=== PATIENT | female | born 1970 | race African-American/Black ===

== ENCOUNTER 2017-04-13 19:34 | Emergency (ER) | payer MEDICAID, OTHER ==
[~2017-04-13] VITALS: Ht 157.5 cm; Wt 77.0 kg
[2017-04-13] MEDS ORDERED: KETOROLAC 60MG/2ML VIAL IM ONE (23:15)
[2017-04-14 01:26] VITALS: BP 131/83
== END 2017-04-14 01:31 | disposition home or self-care (01) ==
LOC: ER 21:02
DX: M25.512 Pain in left shoulder (principal); M79.1 Myalgia; I10 Essential (primary) hypertension; F17.200 Nicotine dependence, unspecified, uncomplicated; V89.2XXA Person injured in unspecified motor-vehicle accident, traffic, initial encounter; Y93.89 Activity, other specified; Y99.8 Other external cause status; Y92.410 Unspecified street and highway as the place of occurrence of the external cause; Z98.890 Other specified postprocedural states
CPT/HCPCS: 73030; 81025; 96372; 99284; J1885

== ENCOUNTER 2017-08-29 05:11 | Inpatient (IN) | payer MEDICAID ==
[~2017-08-29] VITALS: Ht 167.6 cm; Wt 86.2 kg
[2017-08-29] VITALS (40 sets, daily range): BP systolic 116–145; BP diastolic 51–89
[2017-08-29 06:18] LABS: CLARITY URINE CLEAR (CLEAR); COLOR URINE YELLOW (YELLOW); KETONES URINE NEGATIVE (NEGATIVE); LEUKOCYTE ESTERASE URINE NEGATIVE (NEGATIVE); NITRITE URINE NEGATIVE (NEGATIVE); OCCULT BLOOD URINE 1+ (NEGATIVE); PROTEIN URINE NEGATIVE (NEGATIVE); SPECIFIC GRAVITY URINE 1.025 (1.005-1.030); UROBILINOGEN URINE 0.2 E.U./dL (0.2-1.0)
[2017-08-29 06:19] LABS: PARTIAL THROMBOPLASTIN TIME 25.4 sec (23.4-31.0); PROTHROMBIN TIME 10.7 sec (9.4-11.6)
[2017-08-29 06:21] LABS: UCG SCREEN NEGATIVE
[2017-08-29] MEDS ORDERED: LACTATED RINGERS 1,000 ML IV SCH (06:45)
[2017-08-29] MEDS ORDERED: ASPI-1159 PO (07:12)
[2017-08-29] MEDS ORDERED: HYDR25TA PO (07:12)
[2017-08-29] MEDS ORDERED: LISI10TA5 PO (08:32)
[2017-08-29] MEDS ORDERED: FEXO-61 PO (08:32)
[2017-08-29] MEDS ORDERED: ATOR20TA65 PO (08:32)
[2017-08-29] MEDS ORDERED: HYDR-4001 PO (08:32)
[2017-08-29] MEDS ORDERED: FENTANYL CITRATE/PF 50MCG/ML 5ML VIAL ONE (10:30)
[2017-08-29] MEDS ORDERED: ONDANSETRON HCL 4MG/2ML VIAL IV PRN ×2 (10:30→11:00)
[2017-08-29] MEDS ORDERED: MORPHINE SULFATE 4 MG/ML CPJ (NOT FOR IM USE) IV PRN (10:30)
[2017-08-29] MEDS ORDERED: IPRATROPIUM/ALBUTEROL 0.5-3(2.5)MG/3ML NEB INH PRN (10:30)
[2017-08-29] MEDS ORDERED: MIDAZOLAM HCL 2 MG/2 ML VIAL ONE (10:30)
[2017-08-29] MEDS ORDERED: DIPHENHYDRAMINE 50MG/ML VIAL IV PRN (10:30)
[2017-08-29] MEDS ORDERED: PROPOFOL 200MG/20ML VIAL IV ONE (10:30)
[2017-08-29] MEDS ORDERED: GELATIN SPONGE,ABSORBABLE SZ 100 ONE (10:39)
[2017-08-29] MEDS ORDERED: BACITRACIN 50,000 UNITS/VIAL ONE (10:40)
[2017-08-29] MEDS ORDERED: THROMBIN (BOVINE) 5000 UNITS/VIAL TOP ONE (10:40)
[2017-08-29] MEDS ORDERED: NORMAL SALINE 0.9% 10 ML SYR ONE (10:40)
[2017-08-29] MEDS ORDERED: LIDOCAINE HCL/PF 1% 10 MG/ML 5ML VIAL ONE (10:43)
[2017-08-29] MEDS ORDERED: ROCURONIUM BROMIDE 10MG/ML VIAL 5ML IV ONE (10:44)
[2017-08-29] MEDS ORDERED: SUCCINYLCHOLINE CHLORIDE 200MG/10ML VIAL IV ONE (10:45)
[2017-08-29] MEDS ORDERED: FENTANYL CITRATE/PF 50MCG/ML 2ML VIAL ONE (10:56)
[2017-08-29] MEDS ORDERED: LABETALOL 5MG/ML SYR 20 MG/4 ML SYRINGE IV PRN (11:00)
[2017-08-29] MEDS ORDERED: MEPERIDINE HCL/PF 25MG/ML CPJ IV PRN (11:00)
[2017-08-29] MEDS ORDERED: NEOSTIGMINE METHYLSULFATE 1MG/ML 10 ML VIAL ONE (11:57)
[2017-08-29] MEDS ORDERED: GLYCOPYRROLATE 0.2 MG/ML 2ML VIAL ONE ×2 (11:57→12:01)
[2017-08-29] MEDS ORDERED: NALOXONE HCL 0.4 MG/ML 1ML VIAL ONE (12:10)
[2017-08-29] MEDS: HYDROMORPHONE HCL/PF 2MG/ML CPJ IV PRN ×2 (12:20→13:34)
[2017-08-29] MEDS ORDERED: DIPHENHYDRAMINE INJ IV PRN (12:45)
[2017-08-29] MEDS ORDERED: HYDROMORPHONE PCA 10MG/50ML IV PRN (12:45)
[2017-08-29] MEDS ORDERED: ONDANSETRON INJ IV PRN (12:45)
[2017-08-29] MEDS ORDERED: NALOXONE INJ IV PRN (12:45)
[2017-08-29] MEDS ORDERED: CEFAZOLIN SODIUM 1000MG/VIAL IV SCH (14:00)
[2017-08-29] MEDS ORDERED: NICARDIPINE 100 MG in SODIUM CHLORIDE 0.9% 60 ML IV PRN (14:23)
[2017-08-29] MEDS: DEXT 5%/LACTATED RINGERS 1,000 ML IV SCH ×2 (15:02→21:33)
[2017-08-29] MEDS: CEFAZOLIN 1000MG PREMIX 50 ML IV SCH (17:45)
[2017-08-29] MEDS: DEXAMETHASONE 4MG/ML 1ML VIAL IV SCH (17:45)
[2017-08-29] MEDS ORDERED: PNEUMOCOCCAL 23-VAL P-SAC VAC 0.5 ML IM ONE (20:00)
[2017-08-30] VITALS (34 sets, daily range): BP systolic 123–178; BP diastolic 50–108
[2017-08-30] MEDS: DEXAMETHASONE 4MG/ML 1ML VIAL IV SCH ×4 (00:55→17:55)
[2017-08-30] MEDS: CEFAZOLIN 1000MG PREMIX 50 ML IV SCH ×3 (01:00→17:55)
[2017-08-30] MEDS: DEXT 5%/LACTATED RINGERS 1,000 ML IV SCH (05:27)
[2017-08-30 05:43] LABS: HEMATOCRIT. 37.1 % (36.0-48.0); HEMOGLOBIN. 12.6 g/dL (12.0-16.0); MEAN CORPUSCULAR HEMOGLOBIN 29.7 pg (28.0-32.0); MEAN CORPUSCULAR VOLUME 87.4 fL (81.0-99.0); MEAN PLATELET VOLUME 7.2 fl (7.4-10.4); PLATELET 257 x1000/uL (130-400); RED BLOOD CELL COUNT 4.25 mill/uL (4.2-5.4); RED CELL DISTRIBUTION WIDTH 13.4 % (11.6-14.6)
[2017-08-30 05:58] LABS: CHLORIDE 107 mEq/L (98-107)
[2017-08-30] MEDS: ATORVASTATIN CALCIUM 20MG TABLET PO SCH (08:53)
[2017-08-30] MEDS: LISINOPRIL 10MG TABLET PO SCH (08:53)
[2017-08-30] MEDS: HYDROCHLOROTHIAZIDE 25MG TABLET PO SCH (08:54)
[2017-08-30] MEDS: HYDROCODONE/APAP 7.5/325MG 1 TAB TABLET PO PRN (17:55)
[2017-08-30 18:48] LABS: PLATELET ESTIMATE NORMAL
[2017-08-31] VITALS: BP 112/64
[2017-08-31] MEDS: HYDROCODONE/APAP 7.5/325MG 1 TAB TABLET PO PRN ×3 (02:42→21:04)
[2017-08-31] MEDS: CEFAZOLIN 1000MG PREMIX 50 ML IV SCH ×2 (02:42→09:58)
[2017-08-31 04:00] VITALS: BP 126/69
[2017-08-31 08:00] VITALS: BP 143/79
[2017-08-31] MEDS: LISINOPRIL 10MG TABLET PO SCH (09:58)
[2017-08-31] MEDS: ATORVASTATIN CALCIUM 20MG TABLET PO SCH (09:58)
[2017-08-31] MEDS: HYDROCHLOROTHIAZIDE 25MG TABLET PO SCH (09:58)
[2017-08-31 11:32] VITALS: BP 140/70
[2017-08-31 15:30] VITALS: BP 144/78
[2017-08-31 20:00] VITALS: BP 125/50
[2017-09-01] VITALS: BP 111/61
[2017-09-01] MEDS: HYDROCODONE/APAP 7.5/325MG 1 TAB TABLET PO PRN ×3 (03:35→21:51)
[2017-09-01 04:00] VITALS: BP 105/77
[2017-09-01 08:00] VITALS: BP 124/72
[2017-09-01] MEDS: HYDROCHLOROTHIAZIDE 25MG TABLET PO SCH (08:32)
[2017-09-01] MEDS: LISINOPRIL 10MG TABLET PO SCH (08:32)
[2017-09-01] MEDS: ATORVASTATIN CALCIUM 20MG TABLET PO SCH (08:32)
[2017-09-01 11:34] VITALS: BP 103/62
[2017-09-01 16:00] VITALS: BP 130/76
[2017-09-01] MEDS ORDERED: TEMAZEPAM 15MG CAPSULE PO PRN (19:00)
[2017-09-01 20:00] VITALS: BP 116/66
[2017-09-02] VITALS: BP 110/56
[2017-09-02 04:00] VITALS: BP 133/61
[2017-09-02 08:00] VITALS: BP 132/78
[2017-09-02] MEDS: LISINOPRIL 10MG TABLET PO SCH (08:38)
[2017-09-02] MEDS: HYDROCHLOROTHIAZIDE 25MG TABLET PO SCH (08:38)
[2017-09-02] MEDS: ATORVASTATIN CALCIUM 20MG TABLET PO SCH (08:38)
[2017-09-02] MEDS: HYDROCODONE/APAP 7.5/325MG 1 TAB TABLET PO PRN ×2 (08:46→16:19)
[2017-09-02 12:00] VITALS: BP 128/79
[2017-09-02 16:00] VITALS: BP 130/75
[2017-09-02 19:26] VITALS: BP 130/75
== END 2017-09-02 20:15 | DRG 23 ==
LOC: ORIP 05:11 → MICUSO 14:15 → 6EST 08-30 18:51
PROVIDERS: ADMIT Neurological Surgery; ATTEND Neurological Surgery
PROC: 0RB30ZZ Excision of Cervical Vertebral Disc, Open Approach (ICD-10-PCS; 2017-08-29)
PROC: 0RG10K0 Fusion of Cervical Vertebral Joint with Nonautologous Tissue Substitute, Anterior Approach, Anterior Column, Open Approach (ICD-10-PCS; principal; 2017-08-29 09:00)
DX: G95.20 Unspecified cord compression (principal); M47.12 Other spondylosis with myelopathy, cervical region; M48.02 Spinal stenosis, cervical region; R13.10 Dysphagia, unspecified; I10 Essential (primary) hypertension; G82.50 Quadriplegia, unspecified; M50.021 Cervical disc disorder at C4-C5 level with myelopathy; M54.10 Radiculopathy, site unspecified; M50.022 Cervical disc disorder at C5-C6 level with myelopathy; E78.5 Hyperlipidemia, unspecified; R73.9 Hyperglycemia, unspecified; E78.00 Pure hypercholesterolemia, unspecified; Z83.3 Family history of diabetes mellitus; Z87.891 Personal history of nicotine dependence; Z98.1 Arthrodesis status
CPT/HCPCS: 36415; 72040; 80048; 81003; 81025; 82962; 85025; 85610; 85730; 86850; 86900; 88304; 88311; 92610; 93005; 93970; 95925; 95926; 95928; 97116; 97163; 97166; 97530; 97535; A4216; C1713; J0330; J0690; J1100; J1170; J2250; J2310; J2704; J2710; J3010; J3490; J7040; L0172